=== PATIENT | male | born 1925 | race Caucasian/White ===

== ENCOUNTER 2016-10-07 16:45 | Outpatient (CLI) | payer MEDICARE ==
[2016-10-07 17:20] LABS: ALT (SGPT) 71 U/L (0-55); AST (SGOT) 80 U/L (5-34); Albumin 3.6 g/dL (3.4-4.8); Alkaline Phosphatase 416 U/L (40-150); Anion Gap 17 mmol/L (10-20); BUN (Urea Nitrogen) 30 mg/dL (8.4-25.7); Calc. Creatinine Clearance 0 mL/min (70-130); Calcium 9.7 mg/dL (7.8-10.44); Carbon Dioxide 25 mmol/L (23-31); Cardiac Risk 5.3 (Less than 4.5); Chloride 99 mmol/L (98-107); Cholesterol 335 mg/dL (< 200 Desired); Estimated GFR-MDRD 67; Globulin 3.2 g/dL (2.4-3.5); Glucose 113 mg/dL (83-110); HDL Cholesterol 63 mg/dL (>60 Neg Risk); LDL Cholesterol, Calculated 256 mg/dL; Potassium 3.8 mmol/L (3.5-5.1); Protein, Total 6.8 g/dL (5.8-8.1); Sodium 137 mmol/L (136-145); Triglycerides 82 mg/dL (Less than 150)
[2016-10-07 17:40] LABS: Free T4 (Free Thyroxine) 1.05 ng/dL (0.70-1.48); Thyroid Stimulating Hormone 3.3581 uIU/mL (0.35-4.94)
[2016-10-07 17:42] LABS: #Lymphocytes 0.6 thou/uL (1.20-3.40); #Monocytes 0.6 thou/uL (0.11-0.59); #Neutrophils 3.4 thou/uL (1.40-6.50); %Basophils 0.6 % (0.0-1.0); %Eosinophils 0.4 % (0.0-10.0); %Lymphocytes 13.1 % (21.0-51.0); %Monocytes 12.1 % (0.0-10.0); %Neutrophils 73.8 % (42.0-75.0); Hemoglobin 12.8 g/dL (14.0-18.0); Large Platelets SLIGHT; MDiff Complete? YES; Mean Corpuscular HGB CONC 32.1 g/dL (32.0-36.0); Mean Corpuscular Hemoglobin 32.8 pg (27.0-31.0); Mean Platelet Volume 9.4 fL (7.4-10.4); Platelet Count 268 thou/uL (130-400); Red Blood Cell (RBC) Count 3.92 mill/uL (4.70-6.10); Target Cells SLIGHT = 2-5 cells (100X) (0-1/hpf); White Blood Cell (WBC) Count 4.5 thou/uL (4.8-10.8)
== END 2016-10-07 16:46 ==
LOC: HPCALD 16:45
PROVIDERS: ATTEND Family Medicine
DX: Z13.6 Encounter for screening for cardiovascular disorders (principal); R03.0 Elevated blood-pressure reading, without diagnosis of hypertension; R60.9 Edema, unspecified
CPT/HCPCS: 36415; 80053; 80061; 83880; 84439; 84443; 85025

== ENCOUNTER 2016-10-15 13:57 | Outpatient (CLI) | payer MEDICARE ==
--- NOTE | 2016-10-15 15:24 | ULT ---
EXAM: BILATERAL LOWER EXTREMITY ULTRASOUND WITH DOPPLER: HISTORY: Bilateral lower extremity edema. COMPARISON: None. TECHNIQUE: Dickinson scale, color flow, Doppler imaging, with spectral waveform analysis is performed of the left an d right lower extremity venous system. FINDINGS: Bilaterally, there is compressibility, presence of flow, and augmentation of the common femoral vein , femoral vein, and popliteal vein. There is flow and compression of the bilateral greater saphenou s veins, profunda veins, and posterior tibial veins. IMPRESSION: No evidence of thrombus of left or right lower extremity deep venous system. POS: [facility]
--- NOTE | 2016-10-15 15:27 | ULT ---
RIGHT UPPER QUADRANT ULTRASOUND: INDICATION: Hyperbilirubinemia. FINDINGS: There is a coarse echotexture to the liver suspicious for changes of chronic liver disease. There is layered gallbladder sludge within the gallbladder. The gallbladder is mildly enlarged. The gallbladder wall measures 2.3 mm. There is fluid overlying the right hepatic lobe and adjacent to the gallbladder. It is difficult to assess the presence of pericholecystic fluid. No sonographic Segal's sign is reported. The commo n bile duct is prominent measuring 1 cm. The visualized right kidney within normal limits. No dilcia hydronephrosis is noted. The right kidn ey measures 9.6 x 3.9 x 3.9 cm. The pancreas is largely obscured. IMPRESSION: 1. Heterogeneous appearance to the liver may reflect changes of underlying chronic liver disease. There is scattered ascites. Recommend correlation for any history of cirrhosis. 2. No focal hepatic lesion is evident. 3. Gallbladder sludge. 4. Mildly prominent common bile duct measuring up to 1 cm. POS: [facility]
== END 2016-10-15 13:58 | disposition home or self-care (01) ==
LOC: BURULT 13:57
PROVIDERS: ATTEND Family Medicine
DX: E80.6 Other disorders of bilirubin metabolism (principal); R60.9 Edema, unspecified
CPT/HCPCS: 76705; 93970